=== PATIENT | female | born 1950 | race Caucasian/White ===

== ENCOUNTER → 2019-12-29 14:02 | Outpatient (CLI) | payer MEDICARE, OTHER, SELFPAY ==
--- NOTE | ~2019-12-29 | MM_ITS ---
EXAMINATION: MM screening [facility] w jonnathan HISTORY: Screening mammogram TECHNIQUE: Craniocaudal and mediolateral oblique 3-D tomosynthesis images were obtained and synthetic 2-D images were generated. CAD analysis was submitted and interpreted. COMPARISON: 10/29/2018, 09/28/2017, 09/13/2017 BREAST PARENCHYMAL COMPOSITION: The breasts are heterogeneously dense, which may obscure small masses . FINDINGS: RIGHT BREAST: A subtle focal asymmetry is present in the middle third of the outer breast best apprec iated 4 cm from the nipple on the craniocaudal view. LEFT BREAST: There is no evidence of suspicious mass, calcification, or architectural distortion to s uggest malignancy. There has been no significant interval change. IMPRESSION: 1. Focal asymmetry of the outer right breast. 2. Additional mammographic views and possible breast ultrasound are recommended. BI-RADS Category 0: Incomplete: Needs additional imaging evaluation. Reviewed, dictated and finalized at location A. [employer] IMPRESSION: 1. Focal asymmetry of the outer right breast. 2. Additional mammographic views and possible breast ultrasound are recommended . BI-RADS Category 0: Incomplete: Needs additional imaging evaluation.
== END ==
PROVIDERS: Visit Provider Nurse Practitioner Adult Health
DX: Z12.31 Encounter for screening mammogram for malignant neoplasm of breast (principal)
CPT/HCPCS: 77063; 77067

== ENCOUNTER 2020-04-09 12:03 | Outpatient (CLI) | payer MEDICARE, OTHER, SELFPAY ==
--- NOTE | ~2020-04-09 | MM_ITS ---
EXAMINATION: MM diagnostic [facility] RT w jonnathan HISTORY: Focal asymmetry of the right breast on screening mammogram TECHNIQUE: Additional 3-D tomosynthesis images of the right breast were performed and synthetic 2-D i mages were generated. CAD analysis was submitted and interpreted. COMPARISON: 12/19/2019,10/29/2018,09/28/2017 BREAST PARENCHYMAL COMPOSITION: The breasts are heterogeneously dense, which may obscure small masses . FINDINGS: Spot compression of the outer breast demonstrates a return to normal fibroglandular appeara nce in the area questioned on screening mammogram. There is no suspicious mass, calcification, or arc hitectural distortion. IMPRESSION: 1. No mammographic evidence of malignancy. 2. Recommend routine screening mammography in one year. BI-RADS Category 1: Negative Reviewed, dictated and finalized at location A.
== END 2020-04-09 12:04 | disposition home or self-care (01) ==
LOC: ANHIMG 12:06
PROVIDERS: PCP Nurse Practitioner Adult Health; Visit Provider Nurse Practitioner Adult Health
DX: R92.8 Other abnormal and inconclusive findings on diagnostic imaging of breast (principal)
CPT/HCPCS: 77061; 77065; G0279

== ENCOUNTER 2020-08-05 10:01 | Outpatient (CLI) | payer MEDICARE, OTHER, SELFPAY | END 2020-08-05 10:02 | disposition home or self-care (01) | LOC: ANHAUDIO 10:03 | PROVIDERS: PCP Nurse Practitioner Adult Health; Visit Provider Otolaryngology | DX: H90.41 Sensorineural hearing loss, unilateral, right ear, with unrestricted hearing on the contralateral side (principal); H90.72 Mixed conductive and sensorineural hearing loss, unilateral, left ear, with unrestricted hearing on the contralateral side | CPT/HCPCS: 92557; 92567 ==

== ENCOUNTER 2020-08-15 08:13 | Outpatient (CLI) | payer MEDICARE, OTHER, SELFPAY ==
--- NOTE | ~2020-08-15 | CT_ITS ---
EXAMINATION: CT IAC/mastoids BI wo con EXAM DATE: 08/15/2020 09:01 INDICATION: Left middle ear hearing loss, lesion. TECHNIQUE: Spiral CT of the internal auditory canals was performed without contrast. Axial and kim nal images were reviewed. The dose-length product (DLP) for this examination was 299.36 mGy-cm. The exposure was tailored according to patient size, and iterative reconstruction (ASIR) was used as add itional dose reduction technique. There is no prior study for comparison. FINDINGS: Surgical changes from left parotid resection. Severe leftward nasal septal deviation. RIGHT side: The middle ear is well aerated. The mastoid air cells are well aerated. The seventh crane chaser nial nerve has a normal course. The scutum is intact. The ossicles are normal in appearance. The c ochlea and semicircular canals are normal in appearance. Internal auditory canal is normal in appear ance and symmetric compared to contralateral side. LEFT side: There is thickening along the inferior half of the tympanic membrane. The middle ear is we ll aerated. The mastoid air cells are well aerated. The seventh cranial nerve has a normal course. The scutum is intact. The ossicles are normal in appearance. Small portions of the tegmen tympani have wall that is imperceptible. The cochlea and semicircular canals are normal in appearance. Inte rnal auditory canal is normal in appearance and symmetric compared to contralateral side. IMPRESSION: 1. Thickening along inferior portion of left tympanic membrane. 2. Left parotid resection. 3. Leftward nasal septal deviation. Reviewed, dictated and finalized at location B.
== END 2020-08-15 08:14 | disposition home or self-care (01) ==
PROVIDERS: PCP Nurse Practitioner Adult Health; Visit Provider Otolaryngology
DX: H90.12 Conductive hearing loss, unilateral, left ear, with unrestricted hearing on the contralateral side (principal); J34.2 Deviated nasal septum
CPT/HCPCS: 70480

== ENCOUNTER → 2021-06-29 13:17 | Outpatient (CLI) | payer MEDICARE, OTHER, SELFPAY ==
--- NOTE | ~2021-06-29 | MM_ITS ---
EXAMINATION: MM screening [facility] BI w jonnathan HISTORY: Screening mammogram TECHNIQUE: Craniocaudal and mediolateral oblique 3-D tomosynthesis images were obtained and synthetic 2-D images were generated. CAD analysis was submitted and interpreted. COMPARISON: 04/09/2020, 12/29/2019, 10/28/2018 BREAST PARENCHYMAL COMPOSITION: The breasts are heterogeneously dense, which may obscure small masses . FINDINGS: There is no evidence of suspicious mass, calcification, or architectural distortion to sugg est malignancy in either breast. There has been no suspicious interval change. IMPRESSION: 1. No mammographic evidence of malignancy. 2. Recommend routine screening mammography in one year. BI-RADS Category 1: Negative Reviewed, dictated and finalized at location A.
== END ==
PROVIDERS: PCP Nurse Practitioner Adult Health; Visit Provider Nurse Practitioner Adult Health
DX: Z12.31 Encounter for screening mammogram for malignant neoplasm of breast (principal)
CPT/HCPCS: 77063; 77067

== ENCOUNTER → 2022-08-21 15:48 | Outpatient (CLI) | payer MEDICARE, OTHER, SELFPAY ==
--- NOTE | ~2022-08-21 | MM_ITS ---
EXAMINATION: MM screening [facility] BI w jonnathan HISTORY: Screening TECHNIQUE: Craniocaudal and mediolateral oblique 3-D tomosynthesis images were obtained and synthetic 2-D images were generated. CAD analysis was submitted and interpreted. COMPARISON: Comparison to multiple prior studies sequentially, with oldest reviewed study dated 12/2016. BREAST PARENCHYMAL COMPOSITION: The breasts are heterogeneously dense, which may obscure small masses FINDINGS: There is no evidence of suspicious mass, calcification, or architectural distortion to sugg est malignancy in either breast. There has been no suspicious interval change. IMPRESSION: 1. No mammographic evidence of malignancy. 2. Recommend routine screening mammography in one year. BI-RADS Category 1: Negative Reviewed, dictated and finalized at location A.
== END ==
PROVIDERS: PCP Nurse Practitioner Adult Health; Visit Provider Nurse Practitioner Adult Health
DX: Z12.31 Encounter for screening mammogram for malignant neoplasm of breast (principal)
CPT/HCPCS: 77063; 77067

== ENCOUNTER 2024-05-02 13:37 | Outpatient (CLI) | payer MEDICARE, OTHER, SELFPAY ==
--- NOTE | ~2024-05-02 | MM_ITS ---
EXAMINATION: MM screening [facility] BI w jonnathan HISTORY: Screening TECHNIQUE: Craniocaudal and mediolateral oblique 3-D tomosynthesis images were obtained and synthetic 2-D images were generated. CAD analysis was submitted and interpreted. COMPARISON: Comparison to multiple prior studies sequentially, with oldest reviewed study dated 06/29. BREAST PARENCHYMAL COMPOSITION: Dense: The breasts are heterogeneously dense, which may obscure small masses FINDINGS: There is no evidence of suspicious mass, calcification, or architectural distortion to sugg est malignancy in either breast. There has been no suspicious interval change. IMPRESSION: 1. No mammographic evidence of malignancy. 2. Recommend routine screening mammography in one year. BI-RADS Category 1: Negative Reviewed, dictated and finalized at location B.
== END 2024-05-02 13:38 ==
PROVIDERS: PCP Family Medicine; Visit Provider Family Medicine
DX: Z12.31 Encounter for screening mammogram for malignant neoplasm of breast (principal)
CPT/HCPCS: 77063; 77067

== ENCOUNTER 2024-11-11 12:58 | Outpatient (CLI) | payer MEDICARE, OTHER, SELFPAY | END 2024-11-11 12:59 | disposition home or self-care (01) | LOC: ANHAUDIO 12:59 | PROVIDERS: PCP Otolaryngology; Visit Provider Otolaryngology | DX: H90.41 Sensorineural hearing loss, unilateral, right ear, with unrestricted hearing on the contralateral side (principal); H90.72 Mixed conductive and sensorineural hearing loss, unilateral, left ear, with unrestricted hearing on the contralateral side; H74.12 Adhesive left middle ear disease | CPT/HCPCS: 92557; 92567; 92593 ==